=== PATIENT | female | born 1995 | race Caucasian/White ===

== ENCOUNTER 2024-12-20 14:42 | Outpatient (CLI) | payer MEDICAID ==
[~2024-12-20 14:42] MED LIST: fentaNYL/PF 50MCG/1 ML 2ML syringe ONE; midazolam 1 mg/ML 2ml injection ONE
--- NOTE | 2024-12-20 15:48 | RADIOLOGY REPORT ---
INDICATION: ABDOMINAL PAIN TECHNIQUE: Multiple real-time sonographic images of the kidneys and bladder were obtained. COMPARISON: None FINDINGS: RIGHT kidney measures 9.8 cm in length. No hydronephrosis. LEFT kidney measures 11.3 cm in length. Nonobstructing stone in the left kidney measures 1.2 cm. No hydronephrosis. No large intraluminal masses are seen in the bladder. Post void residual of 0 cc. IMPRESSION: Nonobstructing stone in the left kidney measures 1.2 cm.
== END 2024-12-20 23:59 | disposition home or self-care (01) ==
LOC: RAD 14:42
PROVIDERS: ATTEND Nurse Practitioner
DX: N20.0 Calculus of kidney (principal); R10.9 Unspecified abdominal pain
CPT/HCPCS: 76770; J2250; J3010

== ENCOUNTER 2025-02-24 12:03 | Outpatient (CLI) | payer MEDICAID ==
--- NOTE | 2025-02-24 14:33 | RADIOLOGY REPORT ---
Indication: CALCULUS OF KIDNEY Technique: CT axial images of the abdomen and pelvis are obtained without contrast. Coronal and sagit alverto reformats were obtained. Radiation Dose Information: CTDI volume is 24.4 mGy. Dose-length product is 1233 mGy*cm Comparison: Ultrasound abdomen from 12/20/2024 FINDINGS: There is limited interpretation of the abdomen and pelvis without administration of intravenous contr ast. Lung bases demonstrate no pleural effusion. Adrenal glands, spleen, pancreas and liver unremarkable in shape. No CT evidence for cholelithiasis. There is no hydronephrosis. 6 mm nonobstructing left renal calculus. Stomach partially distended. Small bowel loops are normal in caliber. Colonic diverticula. Moderate volume stool within the colon. Normal appendix. Bladder is partially distended.m intrauterine device. Probable uterine leiomyoma in the fundus measur ing 3 cm. No free pelvic fluid. No inguinal lymphadenopathy. [id number] thoracolumbar degenerative disc disease. L4 limbus defect. IMPRESSION: Limited evaluation without contrast. 6 mm nonobstructing left renal calculus. Colonic diverticula. Intrauterine device. Uterine fundus leiomyoma measuring 3 cm
== END 2025-02-24 23:59 | disposition home or self-care (01) ==
LOC: RAD 12:03
PROVIDERS: ATTEND Nurse Practitioner
DX: N20.0 Calculus of kidney (principal); M51.34 Other intervertebral disc degeneration, thoracic region; K57.30 Diverticulosis of large intestine without perforation or abscess without bleeding; D25.9 Leiomyoma of uterus, unspecified
CPT/HCPCS: 74176